=== PATIENT | male | born 2000 | race Caucasian/White ===

== ENCOUNTER 2021-01-23 19:00 | Emergency (ER) | payer BC ==
[~2021-01-23] VITALS: Ht 175.3 cm; Wt 72.7 kg
[2021-01-23 19:06] VITALS: TEMP 97
[2021-01-23 19:27] LABS: BASO % 0.2 % (0.0-2.0); EOS # 0.1 (0.0-0.7); GRAN # 7.3 (1.4-6.5); GRAN % 64.3 % (42.2-75.2); HEMATOCRIT 46.7 % (36.0-47.0); HEMOGLOBIN 16.7 g/dl (12.5-16.1); LYMPH # 3.2 (1.2-3.4); LYMPH % 28.3 % (20.0-51.0); MEAN CELL VOLUME 86 fl (80.0-95.0); MEAN CORPUSCULAR HEMOGLOBIN 31 pg (26.0-32.0); MEAN CORPUSCULAR HGB CONC 36 g/dl (33.0-37.0); MEAN PLATELET VOLUME 9.8 fl (7.4-10.4); MONO # 0.7 (0.1-0.6); MONO % 5.9 % (1.7-9.3); PLATELET COUNT 240 K/mm3 (130-400); RED BLOOD COUNT 5.44 M/mm3 (4.20-5.60); REDCELL DISTRIBUTION WIDTH-CV 11.8 % (11.5-14.5)
[2021-01-23 19:46] LABS: ALANINE AMINOTRANSFERASE 37 U/L (4-49); ALBUMIN 5.4 gm/dL (3.5-5.0); ALKALINE PHOSPHATASE 87 U/L (50-136); ANION GAP 18 mmol/L (7-16); AST,SGOT 34 U/L (15-37); BILIRUBIN,TOTAL 0.6 mg/dL (0.0-1.0); BLOOD UREA NITROGEN 15 mg/dL (9-20); CALCIUM 9.9 mg/dL (8.4-10.2); CARBON DIOXIDE 15 mmol/L (22-30); CHLORIDE 104 mmol/L (98-107); CREATINE KINASE 141 U/L (55-170); CREATININE, serum 0.91 (0.66-1.25); GLUCOSE 146 mg/dL (74-106); POTASSIUM 3.3 mmol/L (3.4-5.0); SODIUM 137 mmol/L (137-145); TOTAL PROTEIN 9.3 gm/dL (6.4-8.2)
[2021-01-23 20:05] LABS: TROPONIN-I < 0.012 ng/mL (0.000-0.035)
[2021-01-23 21:30] VITALS: BP 140/79; PULSE 58
[2021-01-24] MEDS ORDERED: ZOFRAN ODT4 MG PO (15:46)
[2021-01-24] MEDS ORDERED: ATIVAN 0.50.5 MG/TAB PO (15:46)
== END 2021-01-23 21:30 | disposition home or self-care (01) ==
LOC: COL.ER 19:00
PROVIDERS: Emergency Medicine
DX: R07.89 Other chest pain (principal); R00.2 Palpitations; M79.602 Pain in left arm; R06.02 Shortness of breath; R25.1 Tremor, unspecified; F17.290 Nicotine dependence, other tobacco product, uncomplicated
CPT/HCPCS: J2060; J7030

== ENCOUNTER 2021-01-24 12:30 | Emergency (ER) | payer BC ==
[~2021-01-24] VITALS: Ht 175.3 cm; Wt 70.5 kg
[2021-01-24 12:30] VITALS: TEMP 97.9
[2021-01-24] MEDS ORDERED: ATIVAN 0.50.5 MG/TAB PO (15:46)
[2021-01-24] MEDS ORDERED: ZOFRAN ODT4 MG PO (15:46)
[2021-01-24 15:50] VITALS: BP 137/65; PULSE 58
== END 2021-01-24 15:50 | disposition home or self-care (01) ==
LOC: COL.ER 12:30
DX: F41.9 Anxiety disorder, unspecified (principal); F17.290 Nicotine dependence, other tobacco product, uncomplicated; Z20.822 Contact with and (suspected) exposure to COVID-19

== ENCOUNTER 2021-09-04 19:17 | Emergency (ER) | payer BC ==
[~2021-09-04] VITALS: Ht 177.8 cm; Wt 71.8 kg
[~2021-09-04 19:17] MED LIST: ATIVAN 0.50.5 MG/TAB PO; ZOFRAN ODT4 MG PO
[2021-09-04 19:25] VITALS: TEMP 98.5
[2021-09-04] MEDS ORDERED: PEN-VEE K500 MG PO (19:59)
[2021-09-04 20:02] VITALS: BP 127/76; PULSE 73
== END 2021-09-04 20:12 | disposition home or self-care (01) ==
LOC: COL.ER 19:17
DX: K08.89 Other specified disorders of teeth and supporting structures (principal); F41.9 Anxiety disorder, unspecified; Z79.899 Other long term (current) drug therapy

== ENCOUNTER 2021-09-06 15:19 | Emergency (ER) | payer BC ==
[~2021-09-06] VITALS: Ht 177.8 cm; Wt 68.2 kg
[~2021-09-06 15:19] MED LIST changes: +PEN-VEE K500 MG PO
[2021-09-06 15:39] VITALS: TEMP 98.7
[2021-09-06 17:08] LABS: BASO % 0.1 % (0.0-2.0); EOS # 0.1 K/mm3 (0.0-0.7); EOS % 0.7 % (0.0-4.0); GRAN # 5.2 K/mm3 (1.4-6.5); GRAN % 68.2 % (42.2-75.2); HEMATOCRIT 45.5 % (36.0-47.0); HEMOGLOBIN 16.2 g/dl (12.5-16.1); LYMPH # 1.6 K/mm3 (1.2-3.4); LYMPH % 20.6 % (20.0-51.0); MEAN CELL VOLUME 84 fl (80.0-95.0); MEAN CORPUSCULAR HEMOGLOBIN 30 pg (26-32); MEAN CORPUSCULAR HGB CONC 36 g/dl (33.0-37.0); MEAN PLATELET VOLUME 9.3 fl (7.4-10.4); MONO # 0.8 K/mm3 (0.1-0.6); MONO % 10.1 % (1.7-9.3); PLATELET COUNT 225 K/mm3 (130-400); RED BLOOD COUNT 5.43 M/mm3 (4.20-5.60)
[2021-09-06 17:34] LABS: ALANINE AMINOTRANSFERASE 11 U/L (0-55); ALBUMIN 4.7 gm/dL (3.5-5.0); ALKALINE PHOSPHATASE 83 U/L (40-150); ANION GAP 13 mmol/L (7-16); AST,SGOT 20 U/L (5-34); BILIRUBIN,TOTAL 1.1 mg/dL (0.2-1.2); BLOOD UREA NITROGEN 12 mg/dL (9-21); CALCIUM 9.4 mg/dL (8.4-10.2); CARBON DIOXIDE 21 mmol/L (22-29); CHLORIDE 104 mmol/L (98-107); CREATININE, serum 0.89 mg/dL (0.72-1.25); GLUCOSE 76 mg/dL (70-99); SODIUM 138 mmol/L (136-145); TOTAL PROTEIN 8.1 gm/dL (6.2-8.1)
[2021-09-06 17:44] LABS: TROPONIN-I < 0.010 ng/mL (0.00-0.033)
[2021-09-06 18:45] VITALS: BP 144/78; PULSE 80
== END 2021-09-06 18:45 | disposition home or self-care (01) ==
LOC: COL.ER 15:19
PROVIDERS: Physician Assistant
DX: F41.9 Anxiety disorder, unspecified (principal); R07.89 Other chest pain; K04.7 Periapical abscess without sinus; F17.290 Nicotine dependence, other tobacco product, uncomplicated; Z20.822 Contact with and (suspected) exposure to COVID-19; Z79.2 Long term (current) use of antibiotics; Z79.899 Other long term (current) drug therapy